=== PATIENT | female | born 1960 | race Caucasian/White ===

== ENCOUNTER 2021-08-19 08:52 | Day surgery (SDC) | payer MEDICAID, SELFPAY ==
[2021-08-19] MEDS: Lactated Ringers 1,000 ML 15 ML IV (09:25)
[2021-08-19 09:26] VITALS: BP 107/73; PULSE 69; RESP 18; TEMP 36.1; O2SAT 100; BMI 26.2
--- NOTE | 2021-08-19 10:00 | COLBX_PTH ---
PATIENT: CANDICE RANGEL LOC: EN U#:[id number] AGE/SX: 61/F ROOM: RE08/19/[address]: Dr. Jed Gonzalez DO : 1960 BED: DIS: 08/19/2021 SPEC #: [id number] RECD: 08/19/21 16:14 STATUS: HUNTER KIKE #: [id number] NEENA: 08/19/21 10:[address]: Jed Gonzalez DEPT: SURGICAL PATHOLOGY RECD BY: Olya Holcomb ENTERED: 08/20/21 09:00 SP TYPE: COLON BX ROSALBA DR: Dr. Flavio Bills MD Tissues: A - Sigmoid colon biopsy B - COLON BIOPSY Procedures: Surgery Specimen Level IV HEADER OPERATION: Colonoscopy ? open access (MAC) with snare biopsy PRE-OP DIAGNOSIS: Surveillance colonoscopy TISSUE SUBMITTED: A ? Sigmoid polyp, B ? Hepatic flexure polyp MICROSCOPIC DIAGNOSIS A. Sigmoid polyp, biopsy: Fragments of tubular adenoma. B. Hepatic flexure polyp, biopsy: Fragments of tubular adenoma. Fragments of fecal material. CARLOTTA:gogo 08/23/2021 MICROSCOPIC DESCRIPTION Slides are reviewed. GROSS DESCRIPTION A - Received in fixative is one container labeled with the patient's name and designated sigmoid polyp. The specimen consists of multiple irregular fragments of light holbrook soft tissue that in aggregate measure 2 x 0.5 x 0.1 cm. The specimen is totally submitted in one cassette. B - Received in fixative is one container labeled with the patient's name and designated hepatic flexure polyp. The specimen consists of multiple irregular fragments of light holbrook soft tissue mixed with fecal material that in aggregate measure 1.5 x 0.5 x 0.3 cm. The specimen is totally submitted in one cassette. / CARLOTTA:gogo 08/20/2021 TC:1 CPT: 61690 x2
--- NOTE | 2021-08-19 10:10 | HP.PCM_ITS ---
History and Physical Date of Admission: 08/19/21 61-year-old with past bipolar disorder, PTSD the, hypertension, metabolic syndrome presents for surveillance colonoscopy. She does have a history of adenomatous polyps and wants to have a colonoscopy. She is not having any abdominal pain at this time. She is not having any chest pain or shortness of breath. She is not having any nausea or abdominal cramping. She denies any constipation or diarrhea. She also denies any bleeding per rectum. All other 16 review of systems are negative except as pertinent positive mentioned HPI Past medical history: Hypertension, bipolar disorder, metabolic encephalopathy Past surgical history: Cholecystectomy, fissure repair, hemorrhoidectomy, colonoscopy Allergies: As per [facility] Social history: Positive for tobacco negative for alcohol and drugs Family history: Negative for GI malignancy or GI disease Medications: As per [facility] Physical examination blood pressure is 107/73, pulse is 69, respiratory is 18, temperature is 96.9, she satting 100% on room air Generally: No acute distress HEENT normocephalic atraumatic- Cardiovascular-positive S1-S2 no murmurs rubs gallops Respiratory-clear to auscultation bilaterally Abdomen-soft nontender nondistended all 4 quadrant hepatomegaly masses Extremities-no clubbing cyanosis edema Assessment and plan: 61-year-old comes in for surveillance colonoscopy. She was explained alternatives, risk, benefits including not withstanding bleeding, infection, sepsis, perforation, need for emergent surgery . ASA of 2.
[2021-08-19 10:54] VITALS: BP 101/65; BP 107/73; PULSE 75; RESP 16; TEMP 36.7; O2SAT 100
--- NOTE | 2021-08-19 10:54 | OP.COLON_ITS ---
Patient Name: Hanna Padilla Procedure Date: 08/19/2021 10:07 AM Date of : 1960 Age: 61 Procedure: Colonoscopy Indications: Follow-up for history of adenomatous polyps in the colon Providers: Jed Gonzalez DO Medicines: See the Anesthesia note for documentation of the administered medications Patient Profile: This is a 61 year old female. Refer to note in patient chart for documentation of history and physical. Last Colonoscopy: 5 years ago. Complications: No immediate complications. Procedure: Pre-Anesthesia Assessment: - Prior to the procedure, a History and Physical was performed, and patient medications and allergies were reviewed. The patient is competent. The risks and benefits of the procedure and the sedation options and risks were discussed with the patient. All questions were answered and informed consent was obtained. Patient identification and proposed procedure were verified by the physician in the pre-procedure area. Mental Status Examination: alert and oriented. Airway Examination: normal oropharyngeal airway and neck mobility. Respiratory Examination: clear to auscultation. CV Examination: normal. Prophylactic Antibiotics: The patient does not require prophylactic antibiotics. Prior Anticoagulants: The patient has taken no previous anticoagulant or antiplatelet agents. ASA Grade Assessment: II - A patient with mild systemic disease. After reviewing the risks and benefits, the patient was deemed in satisfactory condition to undergo the procedure. The anesthesia plan was to use moderate sedation / analgesia (conscious sedation). Immediately prior to administration of medications, the patient was re-assessed for adequacy to receive sedatives. The heart rate, respiratory rate, oxygen saturations, blood pressure, adequacy of pulmonary ventilation, and response to care were monitored throughout the procedure. The physical status of the patient was re-assessed after the procedure. After I obtained informed consent, the scope was passed under direct vision. Throughout the procedure, the patient's blood pressure, pulse, and oxygen saturations were monitored continuously. The colonoscope was introduced through the anus and advanced to the cecum, identified by appendiceal orifice and ileocecal valve. The colonoscopy was performed without difficulty. The patient tolerated the procedure well. The quality of the bowel preparation was good. Moderate Sedation: Moderate (conscious) sedation was administered by the endoscopy nurse and supervised by the endoscopist. The patient's oxygen saturation, heart rate, blood pressure and response to care were monitored. Total physician intraservice time was 13 minutes. Scope In: 10:21:53 AM Scope Withdrawal Time 0 hours 16 minutes 48 seconds Scope Out: 10:47:28 AM Total Procedure Duration Time 0 hours 25 minutes 35 seconds Findings: The perianal and digital rectal examinations were normal. Four sessile polyps were found in the sigmoid colon and hepatic flexure. The polyps were 1 to 2 mm in size. These polyps were removed with a hot snare. Resection and retrieval were complete. Verification of patient identification for the specimen was done. Estimated blood loss was minimal. A few small and large-mouthed diverticula were found in the sigmoid colon and descending colon. The exam was otherwise without abnormality on direct and retroflexion views. Impression: - Four 1 to 2 mm polyps in the sigmoid colon and at the hepatic flexure, removed with a hot snare. Resected and retrieved. - Diverticulosis in the sigmoid colon and in the descending colon. - The examination was otherwise normal on direct and retroflexion views. Recommendation: - Discharge patient to home. - Resume previous diet. - Continue present medications. - Await pathology results. - Repeat colonoscopy in 3 years for surveillance of multiple polyps. Procedure Code(s): --- Professional --- 95489, Colonoscopy, flexible; with removal of tumor(s), polyp(s), or other lesion(s) by snare technique 87532, 59, Moderate sedation services provided by the same physician or other qualified health home health care provider performing the diagnostic or therapeutic service that the sedation supports, requiring the presence of an independent trained observer to assist in the monitoring of the patient's level of consciousness and physiological status; initial 15 minutes of intraservice time, patient age 5 years or older CPT copyright 2017 [employer]. All rights reserved. The codes documented in this report are preliminary and upon medical biller/coder review may be revised to meet current compliance requirements. Jed Gonzalez DO 08/19/2021 10:53:52 AM This report has been signed electronically. Number of Addenda: 1 Note Initiated On: 08/19/2021 10:07 AM Addendum Number: 1 Addendum Date: 02/16/2022 6:13:28 AM MAC was used as sedation for this procedure. Jed Gonzalez DO 02/16/2022 6:13:34 AM This report has been signed electronically.
--- NOTE | 2021-08-19 10:55 | OP.CCLET_ITS ---
02/16/2022 Flavio Bills [address] [place] [address] Re : Colonoscopy procedure for Hanna Padilla Dear Dr. Bills This procedure was performed on July. My impressions and recommendations are as follows: Impressions : - Four 1 to 2 mm polyps in the sigmoid colon and at the hepatic flexure, removed with a hot snare. Resected and retrieved. - Diverticulosis in the sigmoid colon and in the descending colon. - The examination was otherwise normal on direct and retroflexion views. Recommendations : - Discharge patient to home. - Resume previous diet. - Continue present medications. - Await pathology results. - Repeat colonoscopy in 3 years for surveillance of multiple polyps. My findings are described in the full procedure note, which is enclosed. If I can be of further assistance, please feel free to contact me at . Sincerely, Jed Friend, 08/19/2021 10:53:52 AM This report has been signed electronically.
[2021-08-19 10:59] VITALS: BP 101/62; BP 107/73; PULSE 73; RESP 16; O2SAT 100
[2021-08-19 11:04] VITALS: BP 107/73; BP 108/71; PULSE 72; RESP 16; O2SAT 100
[2021-08-19 11:09] VITALS: BP 107/73; BP 121/72; PULSE 74; RESP 16; TEMP 36.8; O2SAT 100
[2021-08-19 11:33] VITALS: BP 107/73
== END 2021-08-19 23:59 | disposition home or self-care (01) ==
LOC: EN 09:00 → AC 09:00
PROVIDERS: PCP Internal Medicine Infectious Disease; Referring Provider Internal Medicine Infectious Disease; Visit Provider Internal Medicine Gastroenterology
PROC: 0DJD8ZZ Inspection of Lower Intestinal Tract, Via Natural or Artificial Opening Endoscopic (ICD-10-PCS; CPT 45378; principal; 2021-08-19 09:55)
DX: Z12.11 Encounter for screening for malignant neoplasm of colon (principal); F31.9 Bipolar disorder, unspecified; D12.3 Benign neoplasm of transverse colon; D12.5 Benign neoplasm of sigmoid colon; K57.30 Diverticulosis of large intestine without perforation or abscess without bleeding; I10 Essential (primary) hypertension; Z79.899 Other long term (current) drug therapy; Z86.010 Personal history of colon polyps; Z87.891 Personal history of nicotine dependence
CPT/HCPCS: 45385; 88305; J7120; J2405